=== PATIENT | male | born 1950 | race Caucasian/White ===

== ENCOUNTER 2019-12-20 15:39 | Inpatient (IN) | payer MEDICARE, SELFPAY ==
[2019-12-20] VITALS (22 sets, daily range): BP systolic 124–170; BP diastolic 58–102; PULSE 71–93; RESP 6–28; TEMP 36.3–36.5; O2SAT 95–100; BMI 26.4
--- NOTE | 2019-12-20 15:46 | ECG_ITS ---
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 Measurements Intervals [place] Rate: 92 P: 57 WY: 167 QRS: 64 QRSD: 88 T: 88 QT: 340 QTc: 422 Interpretive Statements SINUS RHYTHM LEFT VENTRICULAR HYPERTROPHY AND ST-T CHANGE [VOLTAGE CRITERIA PLUS ST/T ABNORMALITY] No previous ECG available for comparison Electronically Signed On 12-20-2019 20:55:51 CDT by Belia Rivera M.D. [email or web address]/[id number] f
--- NOTE | 2019-12-20 15:47 | XACV_ITS ---
Ht: 180 cm Wt: 86 kg BSA: 2.09 m2 Gender: Male : 1950 Any Known Allergies: No known allergies Exam Priority: Routine Procedure(s): Procedure Description: Diagnostic procedure Procedure Description: PCI procedure Procedure Description: Drug Eluting Coronary Stent Procedure Description: PTCA Procedure Description: Miscellaneous Procedure Description: ACT Procedure Description: Coronary Angiography Diagnostic Cath Status: Emergency Diagnostic Findings * LAD has mild 20% proximal vessel disease. It gives rise to a large diagonal branch that is free of significant disease. It supplies small collaterals to OM 2.. * Left circumflex is a large vessel. It gives rise to 2 OM branches. Mid Circumflex Coronary Artery: Severe 99% stenosis, KATI: 2 flow. * Proximal Right Coronary Artery: Severe 100% stenosis, KATI: 0 flow. Ostial RCA has 80% stenosis. Mid RCA has 85% stenosis.. * Mid Right Coronary Artery: Severe 85% stenosis, KATI: 3 flow. * LM has 0% stenosis. * Coronary angiography shows right dominance. PCI Status: Emergency PCI Indication: STEMI - Immediate PCI for STEMI Interventional Findings * We engaged RCA with a JR4 guide catheter. IV heparin was administered to maintain an ACT above 250 sec throughout the procedure. We used a 0.014 run-through wire to cross the thrombotic occlusion of proximal RCA. We used a 2.5 x 15 mm semi-compliant balloon to predilate the lesion. A 2.75 x 18 mm resolute Kisha drug-eluting stent was placed in the proximal RCA. This was followed by placement of a 3.0 x 15 mm resolute Kisha drug-eluting stent to ostial RCA overlapping with prior stent. We then proceeded to perform PCI of the mid RCA stenosis using a 3.0 x 12 mm drug-eluting stent. At the distal edge of this mid RCA stent there was residual stenosis which was covered by a 3.0 x 8 mm drug-eluting stent. We used a 3.25 x 12 mm NC balloon to post dilate the stents. At this time final angiogram was performed that showed excellent stent expansion, KATI-3 flow and no residual stenosis. We then turned our attention to mid left circumflex stenosis. A 0.014 run-through guidewire was used to cross the mid left circumflex stenosis. This lesion was predilated using 2.75 x 15 mm semi-compliant balloon. We followed this by placing 3.0 x 30 mm resolute Kisha drug-eluting stent. There was residual stenosis noted at distal edge of the stent. This was covered with the help of 3.0 x 12 mm resolute Vining drug-eluting stent. We postdilated the stents using a 3.25 x 12 mm NC balloon. At this time final angiogram was performed that showed excellent stent expansion, no residual stenosis and KATI-3 flow. Guidewire and guide catheter were removed. Patient left the Ring Packer in a stable condition.. * Mid Circumflex Coronary Artery: 99% stenosis treated with AB TREK 2.75X15 RX BALLOON, MDT R KISHA 3.0X30 JULIENNE, MDT R KISHA 3.0X12 JULIENNE, and MDT NC EUPHORA RX [id number] BALLOON. 0% residual stenosis, KATI: 3 flow. * Proximal Right Coronary Artery: 100% stenosis treated with AB TREK 2.50X15 RX BALLOON, MDT R KISHA 2.75X18 JULIENNE, MDT R KISHA 3.0X15 JULIENNE, and MDT NC EUPHORA RX [id number] BALLOON. 0% residual stenosis, KATI: 3 flow. * Proximal Right Coronary Artery: 80% stenosis treated with Drug Eluting Stent. 0% residual stenosis, KATI: 3 flow. * Mid Right Coronary Artery: 85% stenosis treated with MDT R KISHA 3.0X12 JULIENNE and MDT R KISHA 3.0X8 JULIENNE. 0% residual stenosis, KATI: 3 flow. PCI for Multi-vessel Disease: Yes Multi-vessel Procedure Type: Initial PCI Conclusions 1. There is severe coronary artery disease with two vessel disease. Proximal RCA had 100% thrombotic occlusion which was the culprit for acute ST elevation AK. Ostial RCA had 80% stenosis. Mid RCA had 85% stenosis.. 2. Mid left circumflex artery had subtotal 99% occlusion. 3. Mid Circumflex Coronary Artery was treated with two Balloon and two Drug Eluting Stent. 4. Proximal Right Coronary Artery was treated with two Balloon and two Drug Eluting Stent. 5. Proximal Right Coronary Artery was treated with Drug Eluting Stent. 6. Mid Right Coronary Artery was treated with two Drug Eluting Stent. Recommendations * Admit to ICU. * Aspirin and Plavix for at least 1 year. * Aggrastat * drip for 4 hours. * Beta-elise and lisinopril. * High intensity * statin to be initiated. * Order echocardiogram. * Cardiac rehab referral. Interventional RX Recommendation: PCI w/o planned CABG Diagnostic RX Recommendation: PCI w/o planned CABG Anticoagulation: Heparin Pressures Phase:Rest AO : 161 / 106 ( 133 ) @ 11:42:00 AM 109 / 80 ( 94 ) @ 11:50:00 AM 77 / 57 ( 67 ) @ 11:57:00 AM 115 / 70 ( 90 ) @ 12:02:00 PM 115 / 69 ( 89 ) @ 12:28:00 PM Clinical Evaluation EBL: 5mL-10mL Procedural Details Pre-Procedure Time Out. Identified patient by full name and date of as verbalized by the patient/guarantor. Does the consent match the physician's order: N/A Emergent. Accurate & Complete Informed Consent: N/A Emergent. Inpatient/Outpatient History & Physical on Chart: N/A Emergent. If H&P is completed, is and addenduem needed: N/A Emergent; If yes, is the addendum complete: N/A Emergent. Visualize and Verify Site with Patient/Guarantor: N/A. Relevant Radiology Images available: N/A Emergent. Pre-op teaching completed and patient verbalized understanding. The risks, benefits, and alternatives of sedation and/or procedure were discussed by physician. The patient agrees to continue. Procedure started. [facility] Clinical Fraility Score: 2: Well. Ring Packer Indications: ACS <= 24 hours. Chest Pain Symptom Assessment: Typical Angina Symptoms. Cardiovascular Instability: No. Correct patient, site and procedure confirmed by cath team. PERRLA. Strong, equal hand location worker bilaterally. Lungs clear x 5 lobes. IV Site on Arrival: 16 gauge in the right anticubital. IV Site on Arrival: 18 gauge in the left anticubital. IV Fluids: 0.9% NaCl at KVO. 0 mL infused prior to optical laboratory technician. Oxygen started at 2liters/min via nasal canula. bilateral groins was prepped with chloroprep then draped in the usual sterile fashion. Baseline sample Acquired. HR: 86 BPM. Physician arrived. Physician scrubbed in. Immediate Pre-Procedure Time Out. Correct Patient: N/A Emergent; Correct Procedure: N/A Emergent; Correct Site: N/A Emergent; Correct Patient Position: N/A Emergent; Correct Supplies: N/A Emergent; Dried Flammable Prep: N/A Emergent; Blood Products Available: N/A Emergent;. Lidocaine 1% infiltrated to the right groin. Arterial access obtained with micropuncture set. Wire and needle out. Arterial access obtained with micropuncture set. 6 slovak JR 4 guide catheter was inserted over the wire. AP pads applied. Runthrough guidewire was advanced through the guide catheter to lesion in the prox RCA. Inflation number : 1 A AB TREK 2.50X15 RX BALLOON was prepped and advanced across the Prox RCA , then inflated to 12 AMI for 0:15 seconds. Balloon out. Results checked. Inflation Number : 2 A MDT R KISHA 2.75X18 JULIENNE -Lot Number# [id number] exp date 05/16/2021 was prepped and advanced across the Prox RCA. The stent was deployed at 12 AMI for 0:19 seconds. Stent balloon out over wire. Inflation Number : 3 A MDT R KISHA 3.0X15 JULIENNE -Lot Number# [id number] exp date 09/13/2021 was prepped and advanced across the Prox RCA. The stent was deployed at 12 AMI for 0:19 seconds. ACT drawn. Results 361 seconds. Therapeutic limits - pre-heparin administration 90-150 seconds and monitoring heparin during a vascular procedure >250 seconds. Stent balloon out over wire. MDT R KISHA 3.0x12 JULIENNE inserted. Intact stent and wire out. Physician had difficulty gaining arterial access. Inflation Number : 1 A MDT R KISHA 3.0X12 JULIENNE -Lot Number# [id number] exp date 05/28/2021 was prepped and advanced across the Mid RCA. The stent was deployed at 12 AMI for 0:29 seconds. Inflation number : 4 A MDT NC EUPHORA RX 3.95X99CI BALLOON was prepped and advanced across the Prox RCA , then inflated to 14 AMI for 0:22 seconds. Inflation number: 5 The MDT NC EUPHORA RX 3.95O73FV BALLOON was reinflated across the Prox RCA, to 14 AMI for 0:20 seconds. Balloon out. Results checked. Results checked. Inflation Number : 2 A MDT R KISHA 3.0X8 JULIENNE -Lot Number# [id number] exp date 05/17/2021 was prepped and advanced across the Mid RCA. The stent was deployed at 12 AMI for 0:22 seconds. Inflation number: 3 The stent balloon was then re-inflated across the Mid RCA to 14 AMI for 0:17 seconds. Results checked. Wire out. Guide catheter out. A 6 slovak JL4 catheter in over wire. Multiple views taken of left coronary artery. ACT drawn. Results 223 seconds. Therapeutic limits - pre-heparin administration 90-150 seconds and monitoring heparin during a vascular procedure >250 seconds. Catheter out. Inventory is CRD 6 FR XB 3.5 GUIDE. 6 slovak XB 3.5 guide catheter was inserted over the wire. Runthrough guidewire was advanced through the guide catheter to lesion in the mid Circ. Inflation number : 1 A AB TREK 2.75X15 RX BALLOON was prepped and advanced across the Mid CX , then inflated to 12 AMI for 0:18 seconds. Inflation number: 2 The AB TREK 2.75X15 RX BALLOON was reinflated across the Mid CX, to 12 AMI for 0:21 seconds. Inflation number: 3 The AB TREK 2.75X15 RX BALLOON was reinflated across the Mid CX, to 12 AMI for 0:15 seconds. Balloon out. Inflation Number : 4 A MDT R KISHA 3.0X30 JULIENNE -Lot Number# [id number] exp date 09/15/2020 was prepped and advanced across the Mid CX. The stent was deployed at 14 AMI for 0:19 seconds. Stent balloon out over wire. Inflation Number : 5 A MDT R KISHA 3.0X12 JULIENNE -Lot Number# [id number] exp date 09/02/2021 was prepped and advanced across the Mid CX. The stent was deployed at 12 AMI for 0:18 seconds. Results checked. Inflation number: 6 The MDT NC EUPHORA RX 3.99G82KA BALLOON was reinflated across the Mid CX, to 14 AMI for 0:18 seconds. Inflation number: 7 The MDT NC EUPHORA RX 3.90M40FT BALLOON was reinflated across the Mid CX, to 14 AMI for 0:13 seconds. Inflation number: 8 The MDT NC EUPHORA RX 3.16H94CJ BALLOON was reinflated across the Mid CX, to 14 AMI for 0:12 seconds. Results checked. Balloon out. Wire out. Guide catheter out. ACT drawn. Results 265 seconds. Therapeutic limits - pre-heparin administration 90-150 seconds and monitoring heparin during a vascular procedure >250 seconds. Physician scrubbed out. A Suture was successful obtaining hemostatsis at the Right Femoral artery insertion site. Sheath(s) sutured into position with 2-0 silk and sterile 4x4's and Op-site applied over the site. No oozing or signs and symptoms of hematoma noted. Arterial sheath flushed and connected to tranducer and pressure bag with heparinized saline. Post Procedure: Pulses reassessed and unchanged. PERRLA. Strong, equal hand location worker bilaterally. No VTE prophylaxis required. Medication's Wasted: Lidocaine 1% = 9 mL. Medication's Wasted: Nitro = 49.8 mg. Medication's Wasted: Heparin = 4000 units. Total IV fluids: 1000 mL. Post-op diagnosis: stemi. Complications: none. Estimated blood loss: 5mL-10mL. Procedure completed. Patient transferred by bed to ICU. Vital chart was stopped. Access Site Site: Right Femoral artery Sheath Size: 6 Fr Hemostasis Method: Suture Hemostasis Success: Successful Procedure Medications Start: 4:20 PM Stop: 4:20 PM Medication: Versed Amount: 1 mg Route: I.V. Start: 4:21 PM Stop: 4:21 PM Medication: Fentanyl Amount: 50 mcg Route: I.V. Start: 4:41 PM Stop: 4:41 PM Medication: Versed Amount: 1 mg Route: I.V. Start: 4:45 PM Stop: 4:45 PM Medication: Heparin Amount: 6000 units Route: I.V. Start: 4:46 PM Stop: 4:46 PM Medication: Fentanyl Amount: 50 mcg Route: I.V. Start: 4:56 PM Stop: 4:56 PM Medication: Heparin Amount: 2000 units Route: I.V. Start: 5:09 PM Stop: 5:09 PM Medication: Aggrastat 12.5 mg/250 mL Amount: 43 ml Route: I.V. bolus Start: 5:09 PM Stop: 5:09 PM Medication: Aggrastat 12.5 mg/250 mL Amount: 15.5 ml/hr Route: I.V. bolus Start: 5:13 PM Stop: 5:13 PM Medication: Nitrogylcerin Amount: 200 mcg Route: I.C. Start: 5:29 PM Stop: 5:29 PM Medication: Heparin Amount: 2000 units Route: I.V. Start: 5:43 PM Stop: 5:43 PM Medication: Heparin Amount: 2000 units Route: I.V. Start: 5:53 PM Stop: 5:53 PM Medication: Versed Amount: 1 mg Route: I.V. I, the attending physician, have reviewed and verified all procedure medications. Yes, all medications given per verbal order History/Risk Factors Hypertension: No Dyslipidemia: No Peripheral Arterial Disease (PAD): No Myocardial Infarction (AK): No Obesity: No Renal Disease: No Tobacco Use: Never Prior Interventions PCI: No CABG: No Valve Surgery: No Report Signatures Finalized by David Tejada MD on 12/25/2019 07:21 PM
--- NOTE | 2019-12-20 15:49 | W.ED.CHESTPA ---
HPI - Chest Pain General: Chief Complaint: Chest Pain Stated Complaint: CHEST PAIN/STEMI Time Seen by Provider: 12/20/19 15:45 History of Present Illness: HPI narrative: 69-year-old male presents via area back complaining of chest pain radiating bilaterally into the arms. Symptoms began while he was exerting himself they did get better with some sublingual nitro he reports at its worst it was 10/10 radiating bilaterally to the arms he is still at a 6 or 7. He has had some nausea but no vomiting. About a week ago he had some bronchitis-like symptoms was given a shot of Solu-Medrol at the doctor's office. His bronchitis symptoms seem to improve over the next few days but then he also developed some diarrhea which is just begun to improve now. He has not had any fevers that he is noticed. He has no known coronary artery disease he has no known history of hypertension. He does have a history of hyperlipidemia he is not diabetic he does not smoke. Cardiology was present in the emergency room with the patient arrived and reviewed his EKG. MD complaint: chest pain Onset (ago): minute(s) Timing of current episode: constant Prior episodes: Yes Onset: during exertion Pain location: left chest Pain radiation: right arm and left arm Severity: severe Quality: tightness and heaviness Relieving factors: nitroglycerin and rest Exacerbating factors: exertion Context: recent illness (Bronchitis and diarrhea) Associated symptoms: Reports diaphoresis and dyspnea; Deny abdominal pain, fever(s), leg edema, nausea, palpitations, sense of impending doom, syncope or vomiting Treatment prior to arrival: aspirin and nitroglycerin Review of Systems Const: Reports: diaphoresis; Denies: fever(s) ENMT: Denies: throat pain, ear or mastoid pain, nasal discharge or nasal congestion Card: Denies: palpitations or syncope Resp: Reports: dyspnea GI: Reports: diarrhea; Denies: abdominal pain, nausea or vomiting : Denies: flank pain, dysuria, urinary frequency or urinary urgency Skin/Breast: Denies: rash or pruritus PFSH ED PFSH: Family History (Updated 12/21/19 @ 10:41 by David Tejada M.D) Other CAD (coronary artery disease) Social History (Updated 12/21/19 @ 10:41 by David Tejada M.D) Smoking and tobacco status: never smoked Physical Exam Const: COMMON NORMALS: no acute distress GENERAL APPEARANCE: cooperative and comfortable ORIENTATION/CONSCIOUSNESS: Yes awake, Yes oriented to person, Yes oriented to place and Yes oriented to time HENMT: COMMON NORMALS: normocephalic, atraumatic and hearing grossly normal bilaterally HEAD & SCALP: normocephalic and atraumatic Neck/C-Spine: COMMON NORMALS: no JVD Lymph: LYMPHATIC: no lymphadenopathy noted and no lymphedema noted Resp: COMMON NORMALS: normal respiratory effort, No retractions, No use of accessory muscles and clear to auscultation bilaterally AUSCULTATION: clear to auscultation bilaterally Cardio: COMMON NORMALS: no JVD, regular rate, regular rhythm and No murmurs present (Cardio) RATE: regular rate RHYTHM: regular rhythm GI: COMMON NORMALS: Soft to palpation and No hepatosplenomegaly present AUSCULTATION: Yes normoactive bowel sounds PALPATION: Yes Soft to palpation, No Tenderness to palpation present (GI), No Guarding due to palpation present (GI) and Yes No hepatosplenomegaly present Extremity: COMMON NORMALS: normal to inspection, capillary refill normal, no clubbing, cyanosis or edema, no calf tenderness and no pedal edema Neuro: SENSORIUM/ORIENTATION: Yes oriented to person, Yes oriented to place and Yes oriented to time Skin: COMMON NORMALS: no rashes or lesions noted GENERAL SKIN EXAM: no rashes or lesions noted Course Vital Signs: Vital signs: Vital Signs Temperature 99.1 F 12/22/19 11:54 Pulse Rate 96 12/22/19 11:54 Respiratory Rate 25 H 12/22/19 11:54 Blood Pressure 152/76 12/22/19 11:54 Pulse Oximetry 98 12/22/19 11:54 MDM - Chest Pain MDM Narrative: Medical decision making narrative: There are some inferior ST changes. Dr. Barber was present when the patient arrived he would like to take the patient directly to the Rn Cvor. We will get a PTC swab and recommended patient remain on COVID precautions until that is resulted. We will also get a chest x-ray before he leaves the department he has been given Plavix and heparin he has previously been given aspirin prior to arrival he is currently on a nitro drip his blood pressure is maintaining well and he has had pain improvement with that we will continue that. Lab Data: Labs: Lab Results 12/20/19 12/20/19 12/20/19 Range/Units 15:57 15:57 15:57 WBC 19.2 H (4.0-10.0) 10^3/ uL RBC 4.83 (4.1-5.3) 10^6/u L Hgb 14.8 (11.7-16.6) g/dL Hct 43.0 (42.0-52.0) % MCV 89.0 (80-94) fL MCH 30.6 (28.0-34.0) pg MCHC 34.4 (30.0-36.0) g/dL RDW 12.4 (12.1-15.1) % Plt Count 213 (130-400) 10^3/c mm MPV 9.4 (7.4-10.4) fL Neut % (Auto) 81.5 % Lymph % (Auto) 9.2 % [place] % (Auto) 7.9 % Eos % (Auto) 0.5 % Baso % (Auto) 0.2 % Neut # (Auto) 15.67 H (1.8-7.7) 10^3/u L Lymph # (Auto) 1.8 (0.8-4.8) 10^3/u L [place] # (Auto) 1.5 H (0.2-0.9) 10^3/u L Eos # (Auto) 0.1 (0.0-0.8) 10^3/u L Baso # (Auto) 0.0 (0.0-0.1) 10^3/u L Nucleated RBC % (a uto) 0 % Nucleated RBCs # 0.0 /100WBC PT 12.50 (12.1-14.9) SECO NDS INR 0.91 (0.8-1.2) APTT 24.1 (23.9-36.7) SECO NDS Sodium 136 (136-145) mmol/L Potassium 3.9 (3.5-5.1) mmol/L Chloride 100 (98-107) mmol/L Carbon Dioxide 20 L (22-29) mmol/L Anion Gap 19.9 H (5-19) BUN 22 (8-23) mg/dL Creatinine 1.7 H (0.7-1.2) mg/dL GFR Calculation 40.4 L (90-130) mL/min Glucose 131 H (65-115) mg/dL Calculated Osmolal ity 287 (285-295) mOsm/k g Calcium 9.5 (8.5-10.5) mg/dL Total Bilirubin 0.3 (0.15-1.2) mg/dL AST 31 (0-40) U/L ALT 68 H (0-41) U/L Alkaline Phosphata se 67 (40-130) IU/L Creatine Kinase 147 (39-308) U/L CK-MB (CK-2) 4.9 (0-10.4) ng/mL CK-MB (CK-2) Rel I ndex (0.0-5.3) % Troponin T Baselin e (0-15) ng/L C-Reactive Protein 0.3 (0.0-4.9) mg/L Total Protein 7.4 (6.6-8.7) g/dL Albumin 4.7 (3.5-5.2) g/dL Globulin 2.7 (1.3-4.6) g/dL Nasal/Oral COVID-1 9 PCR 12/20/19 12/20/19 Range/Units 15:57 16:08 WBC (4.0-10.0) 10^3/ uL RBC (4.1-5.3) 10^6/u L Hgb (11.7-16.6) g/dL Hct (42.0-52.0) % MCV (80-94) fL MCH (28.0-34.0) pg MCHC (30.0-36.0) g/dL RDW (12.1-15.1) % Plt Count (130-400) 10^3/c mm MPV (7.4-10.4) fL Neut % (Auto) % Lymph % (Auto) % [place] % (Auto) % Eos % (Auto) % Baso % (Auto) % Neut # (Auto) (1.8-7.7) 10^3/u L Lymph # (Auto) (0.8-4.8) 10^3/u L [place] # (Auto) (0.2-0.9) 10^3/u L Eos # (Auto) (0.0-0.8) 10^3/u L Baso # (Auto) (0.0-0.1) 10^3/u L Nucleated RBC % (a uto) % Nucleated RBCs # /100WBC PT (12.1-14.9) SECO NDS INR (0.8-1.2) APTT (23.9-36.7) SECO NDS Sodium (136-145) mmol/L Potassium (3.5-5.1) mmol/L Chloride (98-107) mmol/L Carbon Dioxide (22-29) mmol/L Anion Gap (5-19) BUN (8-23) mg/dL Creatinine (0.7-1.2) mg/dL GFR Calculation (90-130) mL/min Glucose (65-115) mg/dL Calculated Osmolal ity (285-295) mOsm/k g Calcium (8.5-10.5) mg/dL Total Bilirubin (0.15-1.2) mg/dL AST (0-40) U/L ALT (0-41) U/L Alkaline Phosphata se (40-130) IU/L Creatine Kinase (39-308) U/L CK-MB (CK-2) (0-10.4) ng/mL CK-MB (CK-2) Rel I ndex (0.0-5.3) % Troponin T Baselin e 28 H (0-15) ng/L C-Reactive Protein (0.0-4.9) mg/L Total Protein (6.6-8.7) g/dL Albumin (3.5-5.2) g/dL Globulin (1.3-4.6) g/dL Nasal/Oral COVID-1 9 PCR Negative Discharge Plan Discharge Patient Disposition: Admitted As Inpatient Admit Provider: David Tejada Clinical Impression: ST elevation myocardial infarction (STEMI) Condition: Stable Referrals: David Tejada M.D [Physician] - 1 month (follow up at [facility] [phone] your appointment scheduled for the following date of January 22, 3:30 p.m) Cristela Blackman FNP [Nurse Practitioner] - 7-10 days (follow up at [facility] [phone] with REGULATORY COMPLIANCE MANAGER nurse Cristela Blackman for Wound check ,and lab test and follow up for date of December at 11:00 am ) Discharge Diet: Cardiac Discharge Activity: Increase activity as tolerated Patient Instructions: Lisinopril (By mouth), Aspirin (By mouth), Nitroglycerin, Rapid Release (By mouth), Atorvastatin (By mouth), Clopidogrel (By mouth), Myocardial Infarction (DC), Left Heart Catheterization (DC), Coronary Angioplasty (DC), Heart Healthy Diet (DC) Additional Instructions: Please do not lift weight more than 5 pounds for the next 5 days Discharge Date/Time: 12/20/19 17:30 Coding Level of Care Code ED Digital Engineer for Chg Fwd Exam Comprehensive
[2019-12-20] MEDS: clopidogrel 300 mg Tablet PO (16:07)
[2019-12-20] MEDS: heparin 5,000 unit/mL INJ 1 mL 4000 UNIT IVP (16:07)
[2019-12-20] MEDS: sodium chloride 0.9% 1,000 ML 999 ML IV (16:08)
[2019-12-20] MEDS: sodium chloride 0.9% 500 ML 999 ML IV (16:08)
[2019-12-20 16:09] LABS: Basophils % 0.2 %; Eosinophils # 0.1 10^3/uL (0.0-0.8); Eosinophils % 0.5 %; Hemoglobin 14.8 g/dL (11.7-16.6); Lymphocytes # 1.8 10^3/uL (0.8-4.8); Lymphocytes % 9.2 %; Mean Corpuscular HGB Conc 34.4 g/dL (30.0-36.0); Mean Corpuscular Hemoglobin 30.6 pg (28.0-34.0); Mean Platelet Volume 9.4 fL (7.4-10.4); Monocytes # 1.5 10^3/uL (0.2-0.9); Monocytes % 7.9 %; Neutrophils # 15.67 10^3/uL (1.8-7.7); Neutrophils % 81.5 %; Nucleated Red Blood Cells % 0 %; Platelet Count 213 10^3/cmm (130-400); Red Blood Count 4.83 10^6/uL (4.1-5.3); Red Cell Distribution Width 12.4 % (12.1-15.1); White Blood Count 19.2 10^3/uL (4.0-10.0)
[2019-12-20 16:23] LABS: INR 0.91 (0.8-1.2); Partial Thromboplastin Time 24.1 SECONDS (23.9-36.7)
[2019-12-20 16:37] LABS: Troponin(5th) Baseline 28 ng/L (0-15)
[2019-12-20 17:23] LABS: Alanine Aminotransferase 68 U/L (0-41); Albumin Level 4.7 g/dL (3.5-5.2); Alkaline Phosphatase 67 IU/L (40-130); Anion Gap 19.9 (5-19); Aspartate Amino Transferase 31 U/L (0-40); Blood Urea Nitrogen 22 mg/dL (8-23); C Reactive Protein 0.3 mg/L (0.0-4.9); CKMB 4.9 ng/mL (0-10.4); Calcium 9.5 mg/dL (8.5-10.5); Carbon Dioxide 20 mmol/L (22-29); Chloride 100 mmol/L (98-107); Creatine Phosphokinase 147 U/L (39-308); Globulin 2.7 g/dL (1.3-4.6); Glomerular Filtration Rate 40.4 mL/min (90-130); Glucose 131 mg/dL (65-115); Osmolality Calculated 287 mOsm/kg (285-295); Potassium 3.9 mmol/L (3.5-5.1); Sodium 136 mmol/L (136-145); Total Bilirubin 0.3 mg/dL (0.15-1.2); Total Protein 7.4 g/dL (6.6-8.7)
--- NOTE | 2019-12-20 17:46 | ECG_ITS ---
[facility] Test Date: 2019-12-20 Pat Name: Andrez Pelaez Department: Room: [facility] Gender: Male Can Maker: : 1950 Requested By: Rehan Rangel Order Number: [id number] Bette MD: Belia Rivera M.D. Measurements Intervals [place] Rate: 74 P: 56 [place]: 165 QRS: 30 QRSD: 79 T: 17 QT: 400 QTc: 444 Interpretive Statements SINUS RHYTHM INTERPRETATION BASED ON A DEFAULT AGE OF 40 YEARS Compared to ECG 12/20/2019 15:42:47 Left ventricular hypertrophy no longer present ST (T wave) deviation no longer present Electronically Signed On 12-21-2019 21:38:52 CDT by Belia Rivera M.D. [id number]
--- NOTE | 2019-12-20 18:23 | PM.HP ---
Providers/Chief Complaint Admitting Physician: David Tejada M.D Chief Complaint: CHEST PAIN/STEMI History of Present Illness Andrez Pelaez is a 69 year old male 69-year-old male who presented with 2 hours of chest pain. He noted symptoms when he was exerting himself. EMS was called. He was having 10/10 chest pain at the time which was radiating bilaterally to arm. Improved after getting sublingual nitro. Patient also had nausea but no vomiting. On aspirin on his transfer to the hospital. He had bronchitis-like symptoms about a week ago when he was given Solu-Medrol at doctor's office. His bronchitis symptoms had improved however he was still having some diarrhea. Patient denies any fever. He has significant past medical history of hypertension, hyperlipidemia however he does not smoke. EKG showed ST elevation in inferior leads with reciprocal changes in the lateral leads. He was emergently brought to the Chief Nursing Officer. He he was found to have total thrombotic occlusion of proximal RCA and 99% of total occlusion of the mid left circumflex artery. He also had stenosis of ostial RCA and mid RCA. He underwent successful revascularization of RCA and left circumflex using drug-eluting stents x6. Patient was transferred out of the Chief Nursing Officer in stable condition. Review of Systems Narrative: CONSTITUTIONAL: No fever chills weight loss or gain or night sweats. [] HEENT: Normocephalic, atraumatic.[] RESPIRATORY: No cough, sputum, hemoptysis or wheezing.[] CARDIOVASCULAR: Chest pain, no PND, orthopnea, lower extremity edema, presyncope or syncope. [] GI: no nausea vomiting diarrhea. [] MAINTENANCE SERVICES DISPATCHER: No numbness, tingling, weakness or loss of function in any part of the body. [] MUSCULOSKELETAL: No knee or joint pain or rashes. [] Medications/Allergies Allergies Allergy/AdvReac Type Severity Reaction Status Date / Time lisinopril Allergy ADR-Dizzine Verified 12/21/19 09:55 ss metoprolol Allergy ALGY-Difficulty Verified 12/21/19 09:55 Breathing PFSH Acute PFSH: Family History (Updated 12/21/19 @ 10:41 by David Tejada M.D) Other CAD (coronary artery disease) Social History (Updated 12/21/19 @ 10:41 by David Tejada M.D) Smoking and tobacco status: never smoked Vitals/I&O/Wt Last Vital Signs Temp 97.4 F L 12/20/19 15:41 Pulse 93 12/20/19 15:41 Resp 16 12/20/19 15:41 BP 156/102 12/20/19 15:41 Pulse Ox 98 12/20/19 15:41 Weight last 48 hrs Weight 190 lb Physical Exam Narrative: EXAM NARRATIVE: GENERAL: Patient is alert, awake and oriented x3. [] NECK: No jugular vein distension. [] HEENT: No cyanosis. No icterus. No pallor. [] HEART: Regular S1 and S2. No murmur, rub or gallop. [] LUNGS: Clear to auscultate bilaterally. [] ABDOMEN: Soft, nontender and nondistended. Positive bowel sounds. No guarding, rebound or tenderness. [] CENTRAL NERVOUS SYSTEM: Grossly nonfocal. [] EXTREMITIES: Lower extremities with no edema bilaterally. Pulses palpable in the lower extremities, both dorsalis pedis and posterior tibial. [] Data : 12/21/19 05:20 12/21/19 05:20 A&P Assessment and plan (1) ST elevation myocardial infarction (STEMI): Status: Acute (2) Hyperlipidemia: Status: Acute (3) Hypertension: Status: Acute Patient is status post successful revascularization of inferiorly wall myocardial infarction. He also had subtotal occlusion of mid left circumflex artery which underwent successful revascularization. Admit to ICU. Continue aspirin and Plavix. Start atorvastatin BARBARA inhibitor and beta-elise. Order echocardiogram. Given patient's recent bronchitis symptoms last week, nasal swab for COVID 19 has been sent. Will await results. Till that time patient will stay with COVID precautions. He does not have fevers however his BBC count is high and is 19 K. This could be from recent steroid intake. We will follow clinically. X-ray has been ordered. Attestations Medical Necessity Statement*: Care expected to cross 2 midnights. Patient is status post myocardial infarction. Coding Level of Care Code Acute Golf Range Attendant for Saman Wilson Diagnoses ST elevation myocardial infarction (STEMI) I21.3 Hyperlipidemia E78.5 Hypertension I10
[2019-12-20] MEDS: ondansetron 2 mg/ML SDV 2 mL 4 MG IVP ×2 (18:40→22:18)
--- NOTE | 2019-12-20 18:40 | PC.NURSE ---
Patient having increasing episodes of nausea with emesis x1. Dr. Tejada notified and order given for Zofran 4 mg q 4 prn.
[2019-12-20] MEDS: ondansetron 2 mg/ML SDV 2 mL 4 MG (19:22)
--- NOTE | 2019-12-20 19:25 | PC.NURSE ---
To ICU 183 Patient to ICU, monitor hooked up, BP elevated, terrell catheter placed, no hematoma noted to RIGHT groin site, good pulses BLE.
[2019-12-20 20:39] LABS: Amphetamines Screen Urine Negative (Negative); Barbiturates Screen Urine Negative (Negative); Benzodiazepines Screen Urine Negative (Negative); Cocaine Screen Urine Negative (Negative); Opiate Screen Urine Positive (Negative); PCP Screen Urine Negative (Negative); THC Screen Urine Negative (Negative)
[2019-12-20] MEDS: atorvastatin 40 mg Tablet 80 MG PO (21:03)
[2019-12-20 21:19] LABS: Partial Thromboplastin Time > 250.0 SECONDS (23.9-36.7)
--- NOTE | 2019-12-20 21:39 | PC.NURSE ---
Patient continuing to have episodes of nausea with no emesis. Patient has eaten small amount of food without relief. Dr. Tejada notified and one time order given for Pepcid 20mg IVP.
[2019-12-20] MEDS: famotidine 20 mg/2 mL INJ IVP (21:45)
--- NOTE | 2019-12-20 21:46 | ECG_ITS ---
[facility] Test Date: 2019-12-20 Pat Name: Andrez Pelaez Department: Room: [facility] Gender: Male Hospitalist Nocturnist Physician: : [id number] Requested By: Rehan Rangel Order Number: [id number] Bette MD: Belia Rivera M.D. Measurements Intervals [place] Rate: 74 P: 56 IN: 165 QRS: 30 QRSD: 79 T: 17 QT: 400 QTc: 444 Interpretive Statements SINUS RHYTHM INTERPRETATION BASED ON A DEFAULT AGE OF 40 YEARS Compared to ECG 12/20/2019 15:42:47 Left ventricular hypertrophy no longer present ST (T wave) deviation no longer present Electronically Signed On 12-21-2019 21:38:58 CDT by Belia Rivera M.D. [id number] f
[2019-12-20] MEDS: ALPRAZolam 0.25 mg Tablet PO (22:18)
[2019-12-20 22:56] LABS: Troponin 5 6HR 4343 ng/L (0-15); Troponin 5 6HR Delta 4315 ng/L (0-12)
[2019-12-20] MEDS: acetaminophen 325 mg Tablet 650 MG PO (23:09)
[2019-12-20] MEDS: alum-mag-hydroxide-sime 30 mL UDC PO (23:14)
[2019-12-21] VITALS (92 sets, daily range): BP systolic 99–172; BP diastolic 10–102; PULSE 79–112; RESP 9–32; TEMP 36.1–36.8; O2SAT 93–100
[2019-12-21 00:18] LABS: Partial Thromboplastin Time 42.7 SECONDS (23.9-36.7)
[2019-12-21] MEDS: fentaNYL 50 mcg/mL INJ 2mL IVP (03:40)
--- NOTE | 2019-12-21 04:30 | PC.NURSE ---
SHEATH PULL 0332 Femoral sheath site has some bruising and oozing. Dressing removed and sheath pulled. Tip intact. Direct pressure held for 20 minutes. No bleeding or hematoma noted. Pulses strong and regular. Patient tolerated well. Patient instructed to lay supine and educated about not bending extremity. Patient verbalized understanding. Will continue to monitor site per protocol.
[2019-12-21 06:01] LABS: Basophils # 0.1 10^3/uL (0.0-0.1); Basophils % 0.2 %; Hematocrit 37.4 % (42.0-52.0); Hemoglobin 12.7 g/dL (11.7-16.6); Lymphocytes # 1.3 10^3/uL (0.8-4.8); Lymphocytes % 5.9 %; Mean Corpuscular Hemoglobin 30.3 pg (28.0-34.0); Mean Corpuscular Volume 89.3 fL (80-94); Mean Platelet Volume 10.1 fL (7.4-10.4); Monocytes # 1.7 10^3/uL (0.2-0.9); Monocytes % 7.8 %; Neutrophils # 18.19 10^3/uL (1.8-7.7); Neutrophils % 85.6 %; Nucleated Red Blood Cells % 0 %; Platelet Count 200 10^3/cmm (130-400); Red Blood Count 4.19 10^6/uL (4.1-5.3); Red Cell Distribution Width 12.7 % (12.1-15.1); White Blood Count 21.3 10^3/uL (4.0-10.0)
[2019-12-21 06:55] LABS: Blood Urea Nitrogen 18 mg/dL (8-23); Calcium 8.4 mg/dL (8.5-10.5); Carbon Dioxide 24 mmol/L (22-29); Chloride 104 mmol/L (98-107); Glomerular Filtration Rate 84.2 mL/min (90-130); Glucose 136 mg/dL (65-115); Osmolality Calculated 292 mOsm/kg (285-295); Sodium 139 mmol/L (136-145)
--- NOTE | 2019-12-21 07:00 | USCV_ITS ---
Latanya Andrez Age: 69 Gender: M : 1950 Exam Date: 12/21/2019 11:22 Ordering Phys: David Tejada M.D Technologist: Harriet Morrison Exam Location: [facility] [place] Indication: stemi BP: 142 / 77 HR: 101 Rhythm: Sinus Technical Quality: Adequate MEASUREMENTS (Male / Female) Normal Values 2D ECHO LV Diastolic Diameter PLAX 4.5 cm 4.2 - 5.9 / 3.9 - 5.3 cm LV Systolic Diameter PLAX 2.6 cm IVS Diastolic Thickness 1.5 cm 0.6 - 1.0 / 0.6 - 0.9 cm IVS Systolic Thickness 1.6 cm LVPW Diastolic Thickness 1.1 cm 0.6 - 1.0 / 0.6 - 0.9 cm LVPW Systolic Thickness 2.0 cm LV Ejection Fraction 2D Teich 74.7 % LV Ejection Fraction MOD 2C 68.7 % LV Ejection Fraction 2C AL 71.1 % LA Diameter 2.8 cm LA Width 2.8 cm LA Height 5.0 cm RA Width 3.2 cm RA Height 4.7 cm M-MODE LV Diastolic Diameter MM 5.5 cm 4.2 - 5.9 / 3.9 - 5.3 cm LV Systolic Diameter MM 2.8 cm LV Ejection Fraction MM Teich 80.0 % IVS Diastolic Thickness MM 1.1 cm 0.6 - 1.0 / 0.6 - 0.9 cm IVS Systolic Thickness MM 1.7 cm LVPW Diastolic Thickness MM 1.2 cm 0.6 - 1.0 / 0.6 - 0.9 cm LVPW Systolic Thickness MM 1.9 cm Aortic Annulus Diameter 3.1 cm LA Ao Ratio MM 1.0 MV E Point Septal Separation 0.5 cm DOPPLER AV Peak Velocity 123.0 cm/s LVOT Peak Velocity 110.0 cm/s MV Peak Velocity 146.0 cm/s MV Area PHT 5.0 cm squared Mitral E to A Ratio 0.8 MV E' Velocity 56.5 cm/s Mitral E to MV E' Ratio 11.0 Mitral E to LV E' Lateral Ratio 9.1 Mitral E to LV E' Septal Ratio 13.8 TR Peak Velocity 118.5 cm/s TR Peak Gradient 5.6 mmHg Right Atrial Pressure 3.0 mmHg Pulmonary Artery Systolic Pressu 8.6 mmHg PV Peak Velocity 164.3 cm/s RV Acceleration Time 0.1 s FINDINGS Left Ventricle Normal left ventricular size, systolic function with EF of 55 to 60%. Mild hypokinesis of inferior wall is noted. Mild left ventricular hypertrophy is present. Grade 1 diastolic dysfunction is present Right Ventricle The right ventricle is normal in size and function. Right Atrium The right atrium is normal in size. Left Atrium The left atrium is normal in size. Mitral Valve Structurally normal mitral valve without significant stenosis or prolapse. There is mild mitral regurgitation. Aortic Valve Structurally normal aortic valve without significant sclerosis or stenosis. There is no aortic regurgitation. Tricuspid Valve Structurally normal tricuspid valve without significant stenosis or regurgitation. Insufficient TR jet to calculate RVSP. Pulmonic Valve Structurally normal pulmonic valve without significant stenosis. There is no pulmonic regurgitation. Pericardium Normal pericardium without effusion. Aorta Normal ascending aorta dimension. CONCLUSIONS LV systolic function is normal with EF of 55 to 60%. Above- mentioned wall motion abnormalities noted. Grade 1 diastolic dysfunction is present. Mild mitral regurgitation is noted. No comparison studies available. David Tejada MD (Electronically Signed) Final Date: 22 December 2019 08:24 S
--- NOTE | 2019-12-21 07:13 | XR_ITS ---
WS: [id number] XR chest 1V [id number] REASON FOR EXAM: Post STEMI FINDINGS: The heart is at the upper limits of normal in size. The thoracic aorta is mildly ectatic. There are s ome linear densities in both lung bases, likely small areas of platelike atelectasis. No other signif icant pulmonary parenchymal findings are noted. XR/XR chest 1V [id number] IMPRESSION: No significant acute chest abnormality.
[2019-12-21] MEDS: metoprolol tartrate 25 mg Tablet PO (08:03)
[2019-12-21] MEDS: aspirin 81 mg EC Tablet PO (08:03)
[2019-12-21] MEDS: clopidogrel 75 mg Tablet PO (08:03)
[2019-12-21] MEDS: acetaminophen 325 mg Tablet 650 MG PO (08:03)
--- NOTE | 2019-12-21 08:29 | PC.NURSE ---
Metoprolol Patient refused medication, states it makes it where he can't breath and can't take beta blockers. Says Lisinopril makes him very dizzy. Also doesn't want to take statin.
--- NOTE | 2019-12-21 10:48 | P.PN_ITS ---
Subjective Subjective: Interval history: Patient is doing well. Denies any complaints of chest pain, shortness of breath or palpitations. He is anxious about starting atorvastatin as 2 of his brothers significant side effects from it. He also says that he will not take metoprolol as that stops his breathing. COVID testing is still pending. Vitals/I&O/Wt Last Vital Signs Temp 98.3 F 12/21/19 08:15 Pulse 108 H 12/21/19 08:15 Resp 27 H 12/21/19 08:15 BP 160/82 12/21/19 08:15 Pulse Ox 99 12/21/19 08:15 12/20/19 12/21/19 12/21/19 22:59 06:59 14:59 Intake Total 360 / 360 Output Total 1800 / 1800 Balance -1800 / -1800 360 / 360 Weight last 48 hrs Weight 190 lb Physical Exam Narrative: EXAM NARRATIVE: GENERAL: Patient is alert, awake and oriented x3. [] NECK: No jugular vein distension. [] HEENT: No cyanosis. No icterus. No pallor. [] HEART: Regular S1 and S2. No murmur, rub or gallop. [] LUNGS: Clear to auscultate bilaterally. [] ABDOMEN: Soft, nontender and nondistended. Positive bowel sounds. No guarding, rebound or tenderness. [] CENTRAL NERVOUS SYSTEM: Grossly nonfocal. [] EXTREMITIES: Lower extremities with 1+ edema bilaterally. Pulses palpable in the lower extremities, both dorsalis pedis and posterior tibial. [] Urinary Catheter Management^: Hoffman: Cath Placed During This Visit: yes Reason for Continuing Indwelling Catheter: Accurate Measurement of Urinary Output in Critically Ill Patients Urinary Catheter Date of Insertion: 12/20/19 Urinary Catheter Time of Insertion: 19:00 Data : 12/21/19 05:20 12/21/19 05:20 A&P Assessment and plan (1) ST elevation myocardial infarction (STEMI): Status: Acute (2) Hyperlipidemia: Status: Acute (3) Hypertension: Status: Acute Patient is status post successful revascularization of inferiorly wall myocardial infarction. He also had subtotal occlusion of mid left circumflex artery which underwent successful revascularization. Continue isolation until covert result is back. Continue aspirin and Plavix. Patient has agreed to start atorvastatin 40 mg. I am not sure if he will be compliant with the medications as he says he only takes the medications that his body accepts. I have emphasized the need to continue aspirin and Plavix as he has multiple stents and the risk of thrombosis will be high if he discontinues any of those medications. He understands that. He has refused to take beta-blockers or says that his breathing gets worse with it. He will be on lisinopril 10 mg daily. Echo has been ordered. Awaiting results. His white cell count is still 21,000. COVID result is pending. He is afebrile. We will observe for now. Attestations Medical Necessity Statement*: Care expected to cross 2 midnights. Patient is status post acute ST elevation myocardial infarction. Coding Level of Care Code Acute Or Nurse Manager for Saman Wilson Diagnoses ST elevation myocardial infarction (STEMI) I21.3 Hyperlipidemia E78.5 Hypertension I10
[2019-12-21] MEDS: perflutren protein-a microsphr 0.22 mg/mL SDV 3 mL IV (12:34)
[2019-12-21] MEDS: lisinopril 10 mg Tablet PO (18:33)
[2019-12-21 20:59] LABS: Coronavirus Lab Test PTC Negative
--- NOTE | 2019-12-21 21:02 | PC.NURSE ---
Patient refused ordered dose of Atorvastatin. States Dr. Tejada said he could just take [address] Tejada's note agreed to patient taking 40 mg of Atorvastatin. Order was changed on MAY.
[2019-12-21] MEDS: atorvastatin 40 mg Tablet PO (21:04)
[2019-12-22] VITALS (37 sets, daily range): BP systolic 90–161; BP diastolic 53–88; PULSE 76–97; RESP 12–25; TEMP 37.3; O2SAT 94–98
[2019-12-22] MEDS: acetaminophen 325 mg Tablet 650 MG PO (00:48)
--- NOTE | 2019-12-22 09:06 | PM.DCS ---
Discharge Providers Date of Admission: 12/20/19 18:11 Date of Discharge: December 22, 2019 Attending Provider at Admission: David Tejada M.D Attending Provider at Discharge: David Tejada M.D Diagnoses at Discharge Discharge Diagnosis (1) ST elevation myocardial infarction (STEMI): Status: Acute (2) Hyperlipidemia: Status: Acute (3) Hypertension: Status: Acute Reason for Visit Reason for Visit: CHEST PAIN/STEMI Brief History: 69-year-old man with past medical history of hypertension, hyperlipidemia presented with 2 hours of chest pain. Found to have inferior wall [place]. Taken emergently to [facility]. Hospital Course Hospital Course: 69-year-old man with past medical history of hypertension, hyperlipidemia presented with 2 hours of chest pain. He was found to have inferior wall [place] on EKG with lateral wall reciprocal changes. He was taken emergently to [facility] for coronary angiography. Angiography showed thrombotic occlusion of proximal RCA. He also was found to have subtotal occlusion of mid left circumflex artery. He underwent successful revascularization with drug-eluting stent x6 he has had multiple blockages. Patient tolerated the procedure well and his chest pain went away. EKG changes resolved. Echocardiography done subsequently showed normal cardiac function. His COVID PCR was negative. His WBC count was elevated however he did not have any fever or signs of infection. He had recent Solu-Medrol given for possible bronchitis. This likely would explain his elevated white cell count. Patient's compliance is questionable. He initially did not want to take atorvastatin as his brother had muscle pains because of the medication. Later he agreed to taking it. He refused to take beta-blockers as he says he gets short of breath with it. Initially he also refused to take a lisinopril as that had dropped his blood pressure once in the past. At discharge he agreed to start taking it. We emphasized a lot on keep taking aspirin and Plavix as he has multiple stents in place and if he stops the medications, he will be at significant risk of stent thrombosis. Patient has verbalized understanding. He will follow with [facility]. Patient was discharged in stable condition Physical Exam Narrative: EXAM NARRATIVE: GENERAL: Patient is alert, awake and oriented x3. [] NECK: No jugular vein distension. [] HEENT: No cyanosis. No icterus. No pallor. [] HEART: Regular S1 and S2. No murmur, rub or gallop. [] LUNGS: Clear to auscultate bilaterally. [] ABDOMEN: Soft, nontender and nondistended. Positive bowel sounds. No guarding, rebound or tenderness. [] CENTRAL NERVOUS SYSTEM: Grossly nonfocal. [] EXTREMITIES: Lower extremities with no edema bilaterally. Pulses palpable in the lower extremities, both dorsalis pedis and posterior tibial. [] Urinary Catheter Management^: Hoffman: Cath Placed During This Visit: yes, but has since been removed by the nurse Reason for Continuing Indwelling Catheter: Not indwelling catheter Urinary Catheter Date of Insertion: 12/20/19 Urinary Catheter Time of Insertion: 19:00 Date Urinary Catheter Removed: 12/21/19 Time Urinary Catheter Discontinued: 13:00 Discharge Data Data Completed and Pending: Completed Studies During Hospitalization Category Date Time Status XR chest 1V [id number] Routine Exams 12/21/19 07:13 Completed CV echo wo/w cont rast [id number] Routine Ultrasound 12/21/19 07:00 Completed Pending at discharge Category Date Time Status TRANSISTOR TESTER request for service Stat Exams 12/20/19 15:47 Taken US/CV paperwork R outine Ultrasound 12/21/19 12:07 Taken Labs from last 24 hours 12/20/19 16:08 Nasal/Oral COVID-1 9 PCR Negative Vitals: Last Vital Signs Temp 99.1 F 12/22/19 08:00 Pulse 80 12/22/19 07:00 Resp 13 12/22/19 07:00 BP 136/80 12/22/19 08:00 Pulse Ox 97 12/22/19 07:00 Discharge Plan Discharge Patient Disposition: Home Condition: Stable Prescriptions: New atorvastatin 40 mg Tablet 40 mg PO BEDTIME Qty: 90 RF: 3 clopidogrel 75 mg Tablet 75 mg PO DAILY Qty: 90 RF: 3 aspirin 81 mg Tablet,Delayed Release (Dr/Ec) 81 mg PO DAILY Qty: 90 RF: 3 nitroglycerin 0.4 mg Tablet, Sublingual 0.4 mg sublingual Q5M PRN (Reason: Chest Pain) Qty: 30 RF: 1 lisinopril 10 mg tablet 5 mg PO DAILY Qty: 60 RF: 3 Discharge Orders: Discharge Order (Routine); Ordered 12/22/19 Ordered By: David Tejada Referrals: David Tejada M.D [Physician] - 1 month (follow up at [facility] [phone] your appointment scheduled for the following date of January 22, 3:30 p.m) Crsitela Blackman FNP [Nurse Practitioner] - 7-10 days (follow up at [facility] [phone] with COMMISSIONER OF OFFICIALS nurse Cristela Blackman for Wound check ,and lab test and follow up for date of December at 11:00 am ) Discharge Diet: Cardiac Discharge Activity: Increase activity as tolerated Patient Instructions: Lisinopril (By mouth), Aspirin (By mouth), Nitroglycerin, Rapid Release (By mouth), Atorvastatin (By mouth), Clopidogrel (By mouth), Myocardial Infarction (DC), Left Heart Catheterization (DC), Coronary Angioplasty (DC), Heart Healthy Diet (DC) Activity Restrictions/Additional Instructions: Please do not lift weight more than 5 pounds for the next 5 days Discharge Date/Time: 12/22/19 12:00 Discharge Attestations Time Spent in Discharge Care*: greater than 30 min Specific Discharge Activities: Specific discharge activities: educating patient, documenting/other paperwork and evaluating patient/reviewing data Status at Discharge: Cognitive status at discharge: cognitively intact, Behavioral status at discharge: cooperative, Functional status at discharge: independent ambulation Overall status at discharge: patient is back to baseline Quality Metrics Clinical Quality Measures During this hospital stay, did patient experience: None Coding Level of Care Code Acute Drivability Technician for Saman Fwd Diagnoses ST elevation myocardial infarction (STEMI) I21.3 Hyperlipidemia E78.5 Hypertension I10
[2019-12-22] MEDS: lisinopril 10 mg Tablet PO (09:53)
[2019-12-22] MEDS: aspirin 81 mg EC Tablet PO (09:53)
[2019-12-22] MEDS: clopidogrel 75 mg Tablet PO (09:53)
--- NOTE | 2019-12-22 12:11 | PC.NURSE ---
Discharge instructions provided and discussed. Stent cards given to pt. Follow up appts, post cardiac stent/STEMI care, medications disucssed. Pt verbalized understanding.
== END 2019-12-22 12:00 | disposition home or self-care (01) | DRG 246 ==
LOC: ER 16:14 → CCL 16:17 → ICU 18:12
PROVIDERS: Admitting Provider Internal Medicine; Emergency Provider Family Medicine; Visit Provider Internal Medicine
PROC: 027137Z Dilation of Coronary Artery, Two Arteries with Four or More Drug-eluting Intraluminal Devices, Percutaneous Approach (ICD-10-PCS; principal; 2019-12-20 15:30)
PROC: 027137Z Dilation of Coronary Artery, Two Arteries with Four or More Drug-eluting Intraluminal Devices, Percutaneous Approach (ICD-10-PCS; 2019-12-20 15:30)
DX: I21.19 ST elevation (STEMI) myocardial infarction involving other coronary artery of inferior wall (principal); I10 Essential (primary) hypertension; E78.5 Hyperlipidemia, unspecified
CPT/HCPCS: 12345; 36415; 51702; 71045; 80048; 80053; 80306; 82550; 82553; 84484; 85025; 85347; 85610; 85730; 86140; 87635; 93005; 93454; 99283; 99291; C1725; C1769; C1874; C1887; C1894; C8929; C9601; C9606; J0461; J1644; J2250; J2405; J3010; J3246; J3490; J7030; J7040; Q9956; Q9967

== ENCOUNTER → 2019-12-29 12:19 | Outpatient (BNVA) | payer MEDICARE, SELFPAY | PROVIDERS: PCP Family Medicine; Visit Provider Nurse Practitioner Family | DX: E78.5 Hyperlipidemia, unspecified (principal); I25.119 Atherosclerotic heart disease of native coronary artery with unspecified angina pectoris | CPT/HCPCS: 80048 ==

== ENCOUNTER → 2020-01-02 08:53 | Outpatient (BNVA) | payer MEDICARE, SELFPAY | PROVIDERS: PCP Family Medicine; Visit Provider Internal Medicine | DX: I25.119 Atherosclerotic heart disease of native coronary artery with unspecified angina pectoris (principal) | CPT/HCPCS: 80061 ==

== ENCOUNTER → 2021-07-22 13:06 | Outpatient (BNVA) | payer MEDICARE, SELFPAY | PROVIDERS: PCP Family Medicine; Visit Provider Internal Medicine | DX: I25.119 Atherosclerotic heart disease of native coronary artery with unspecified angina pectoris (principal); I10 Essential (primary) hypertension; F41.9 Anxiety disorder, unspecified; E78.5 Hyperlipidemia, unspecified; Z87.891 Personal history of nicotine dependence | CPT/HCPCS: 99214 ==

== ENCOUNTER → 2022-04-24 14:25 | Outpatient (BNVA) | payer MEDICARE, SELFPAY | PROVIDERS: PCP Family Medicine; Visit Provider Internal Medicine | DX: I10 Essential (primary) hypertension (principal); F41.9 Anxiety disorder, unspecified; E78.5 Hyperlipidemia, unspecified; I25.119 Atherosclerotic heart disease of native coronary artery with unspecified angina pectoris; I25.2 Old myocardial infarction; Z87.891 Personal history of nicotine dependence | CPT/HCPCS: 99214 ==

== ENCOUNTER → 2023-01-19 13:42 | Outpatient (BNVA) | payer MEDICARE, SELFPAY | PROVIDERS: PCP Family Medicine; Visit Provider Internal Medicine | DX: F41.9 Anxiety disorder, unspecified (principal); I10 Essential (primary) hypertension; E78.5 Hyperlipidemia, unspecified; I25.119 Atherosclerotic heart disease of native coronary artery with unspecified angina pectoris; I25.2 Old myocardial infarction; Z87.891 Personal history of nicotine dependence | CPT/HCPCS: 99214 ==

== ENCOUNTER → 2023-12-14 09:30 | Outpatient (BNVA) | payer MEDICARE, SELFPAY | PROVIDERS: PCP Family Medicine; Visit Provider Internal Medicine | DX: I25.119 Atherosclerotic heart disease of native coronary artery with unspecified angina pectoris (principal); F41.9 Anxiety disorder, unspecified; I10 Essential (primary) hypertension; E78.5 Hyperlipidemia, unspecified; I25.2 Old myocardial infarction; Z87.891 Personal history of nicotine dependence | CPT/HCPCS: 99214 ==

== ENCOUNTER → 2024-12-12 12:33 | Outpatient (BNVA) | payer MEDICARE, SELFPAY | PROVIDERS: PCP Physician Assistant; Visit Provider Internal Medicine | DX: I10 Essential (primary) hypertension (principal); I25.119 Atherosclerotic heart disease of native coronary artery with unspecified angina pectoris; I25.2 Old myocardial infarction; Z87.891 Personal history of nicotine dependence | CPT/HCPCS: 99213 ==